=== PATIENT | male | born 1975 | race Caucasian/White ===

== ENCOUNTER 2021-06-10 08:17 | Outpatient (CLI) | payer BC | END 2021-06-10 08:18 | disposition home or self-care (01) | LOC: SCSMRI 08:17 | PROVIDERS: ATTEND Orthopaedic Surgery | DX: S46.011A Strain of muscle(s) and tendon(s) of the rotator cuff of right shoulder, initial encounter (principal) ==

== ENCOUNTER 2021-07-01 13:00 | Outpatient (CLI) | payer BC ==
[2021-07-01 14:18] LABS: #Basophils 0.1 10x3/uL (0.0-0.2); #Eosinphils 0.1 10x3/uL (0.0-0.5); #Monocytes 0.5 10x3/uL (0.0-1.1); #Neutrophils 3.7 10x3/uL (1.5-8.4); %Basophils 0.8 % (0.0-2.0); %Eosinophils 0.9 % (0.0-6.0); %Lymphocytes 33.5 % (18.0-47.0); %Monocytes 8.3 % (0.0-10.0); Hemoglobin 14.4 g/dL (13.5-17.5); Mean Corpuscular HGB CONC 32.9 g/dL (32.0-36.0); Mean Corpuscular Hemoglobin 27.7 pg (27.0-33.0); Mean Corpuscular Volume 84.2 fl (81.2-95.1); Mean Platelet Volume 9.7 fl (7.4-10.4); Platelet Count 248 10x3/uL (150-450); White Blood Cell (WBC) Count 6.5 10x3/uL (3.5-10.5)
[2021-07-01 14:34] LABS: Anion Gap 14 mmol/L (10-20); BUN (Urea Nitrogen) 24 mg/dL (8.9-20.6); Calc. Creatinine Clearance 0 mL/min (70-130); Calcium 9.6 mg/dL (7.8-10.44); Carbon Dioxide 27 mmol/L (22-29); Chloride 104 mmol/L (98-107); Glucose 102 mg/dL (70-105); Potassium 4.4 mmol/L (3.5-5.1); Sodium 141 mmol/L (136-145)
[2021-07-02 02:04] LABS: SARS-CoV-2 PCR by NAA Not Detected (NotDetected)
== END 2021-07-01 13:01 | disposition home or self-care (01) ==
LOC: LABBT 13:00
PROVIDERS: ATTEND Orthopaedic Surgery
DX: Z01.812 Encounter for preprocedural laboratory examination (principal); S46.011A Strain of muscle(s) and tendon(s) of the rotator cuff of right shoulder, initial encounter; S43.431A Superior glenoid labrum lesion of right shoulder, initial encounter; Z20.822 Contact with and (suspected) exposure to COVID-19
CPT/HCPCS: 80048; 85025; U0003; U0005

== ENCOUNTER 2021-07-06 07:08 | Day surgery (SDC) | payer BC ==
[2021-07-01 14:27] VITALS: BMI 28.7
[2021-07-06] MEDS ORDERED: Midazolam HCl 2 mg/2 ml Vial ONE (07:56)
[2021-07-06] MEDS ORDERED: Fentanyl 100 MCG/2 ML VIAL ONE (07:56)
[2021-07-06] MEDS ORDERED: Ropivacaine 0.2% 550 ML 550 ML NERVE BLCK SCH (08:45)
[2021-07-06] MEDS ORDERED: Ondansetron PF 4 MG/2 ML Vial IVP PRN (08:45)
[2021-07-06] MEDS ORDERED: Zolpidem Tartrate 5 MG TAB PO PRN (08:45)
[2021-07-06] MEDS ORDERED: Promethazine HCl 25 MG/ML VIAL IM PRN (08:45)
[2021-07-06] MEDS ORDERED: traMADol HCl 50 MG TAB PO PRN ×2 (08:45)
[2021-07-06] MEDS ORDERED: Sodium Chloride 0.9% 100 ML ONE (09:44)
[2021-07-06] MEDS ORDERED: Sodium Chloride 0.9% 0 ML ONE (09:44)
[2021-07-06] MEDS ORDERED: cefOXitin 2 GM VIAL ONE (09:44)
[2021-07-06] MEDS ORDERED: fentaNYL Citrate/PF 100 MCG/2 ML SYRINGE ONE (09:55)
[2021-07-06] MEDS ORDERED: Lidocaine 1% PF 5 ML VIAL ONE (10:12)
[2021-07-06] MEDS ORDERED: Dexamethasone 20 MG/5 ML VIAL ONE (10:12)
[2021-07-06] MEDS ORDERED: Ropivacaine 0.5% HCl/PF (150 MG/30 ML VIAL) ONE (10:12)
[2021-07-06] MEDS ORDERED: Ondansetron PF 4 MG/2 ML Vial ONE (10:12)
[2021-07-06] MEDS ORDERED: Glycopyrrolate 0.2 MG/ML 5 ML SYRINGE ONE (10:12)
[2021-07-06] MEDS ORDERED: PROPOFOL 200 MG/20 ML VIAL ONE (10:12)
[2021-07-06] MEDS ORDERED: Rocuronium Bromide 10 MG/ML (10ML VIAL) ONE (10:12)
[2021-07-06] MEDS ORDERED: Xylocaine 1% w/ Epi 1:100K 10 ML VIAL ONE (10:42)
[2021-07-06] MEDS ORDERED: Promethazine HCl 25 MG/ML VIAL ONE (13:27)
== END 2021-07-06 14:20 | disposition home or self-care (01) ==
LOC: SDC 07:08
PROVIDERS: ATTEND Orthopaedic Surgery
PROC: 3E0T3BZ Introduction of Anesthetic Agent into Peripheral Nerves and Plexi, Percutaneous Approach (ICD-10-PCS; principal; 2021-07-06)
PROC: 0LQ14ZZ Repair Right Shoulder Tendon, Percutaneous Endoscopic Approach (ICD-10-PCS; principal; 2021-07-06)
DX: S46.011A Strain of muscle(s) and tendon(s) of the rotator cuff of right shoulder, initial encounter (principal); S43.431A Superior glenoid labrum lesion of right shoulder, initial encounter; M24.811 Other specific joint derangements of right shoulder, not elsewhere classified; E78.5 Hyperlipidemia, unspecified; G89.29 Other chronic pain; M54.9 Dorsalgia, unspecified; R73.03 Prediabetes; Z79.899 Other long term (current) drug therapy; Z88.5 Allergy status to narcotic agent; Z88.6 Allergy status to analgesic agent; X50.0XXA Overexertion from strenuous movement or load, initial encounter
CPT/HCPCS: A4306; C1713; J0694; J1100; J2250; J2405; J2550; J2704; J2795; J3010; J3490; J7050

== ENCOUNTER 2022-11-15 17:00 | Outpatient (CLI) | payer OTHER | END 2022-11-15 17:01 | disposition home or self-care (01) | LOC: SLEEPLAB 17:00 | PROVIDERS: ATTEND Family Medicine | DX: G47.33 Obstructive sleep apnea (adult) (pediatric) (principal); F41.9 Anxiety disorder, unspecified; E66.9 Obesity, unspecified; R06.83 Snoring; I10 Essential (primary) hypertension; Z68.32 Body mass index [BMI] 32.0-32.9, adult | CPT/HCPCS: 95800 ==